=== PATIENT | male | born 1940 | race Caucasian/White ===

== ENCOUNTER → 2017-12-20 | Day surgery (SDC) | payer MEDICARE, OTHER ==
[2017-12-18 10:30] VITALS: BMI 23.6
[~2017-12-20] MED LIST: LACTATED RINGERS 1,000 ML IV SCH; LIDOCAINE 1% 20 ML VIAL (10MG/ML) FOR IV START INTRADERMA ONE; LIDOCAINE 1% INJ 10MG/ML (20 ML MDV) ONE; PROPOFOL 10 MG/ML 20 ML VIAL IV ONE
[2017-12-20 08:32] VITALS: RESP 16; TEMP 97.8
[2017-12-20 10:23] VITALS: BP 106/62; PULSE 73
--- NOTE | 2017-12-20 10:24 | P.PCN ---
Date of Procedure: 12/20/17 Procedure(s) Performed: Procedure: Total colonoscopy. Preoperative diagnosis: Screening for neoplasia patient has history of polyps. Postoperative diagnosis: Exam within normal limits. Preparation: HalfLytely prep. Sedation: Was provided by anesthesia. Brief clinical history: The patient is a 77-year-old male with history of polyps. He had a sigmoid polyp removed piecemeal and a rectal polyp removed on his last colonoscopy in October 2014. The patient had colonoscopy with polypectomy and post-polypectomy bleed the month before at the [place], and at that time he had 2 ascending colon polyps removed and a large sigmoid polyp which was partially removed. The patient was recommended repeat exam at this time. He has no abdominal complaints, bleeding or anemia. Procedure: With the patient on his left lateral decubitus position and after informed consent and adequate sedation, the perianal area was inspected and it did not show any fissures or fistulas. There were no masses felt on digital rectal examination. The Olympus CFQ 160L videocolonoscope was then inserted in the rectum in the usual fashion and advanced to the cecum. The mucosa appeared healthy. No polyps or tumors were seen or any obvious diverticular disease or other pathology. I retroflexed the endoscope in the rectum before the endoscope was withdrawn. The patient tolerated the procedure well. Plan: The patient was reassured. Consideration can be given for repeat exam in 5 years depending on his overall health at that time. He will follow up with you as planned.
== END | disposition home or self-care (01) ==
LOC: ORWHC2ENDO 08:04
DX: Z12.11 Encounter for screening for malignant neoplasm of colon (principal); Z86.010 Personal history of colon polyps
CPT/HCPCS: J2001; J2704; G0105; 45378

== ENCOUNTER → 2022-08-25 | Outpatient (CLI) | payer OTHER ==
--- NOTE | 2022-08-25 14:59 | CT ---
EXAMINATION TYPE: CT abdomen pelvis wo con DATE OF EXAM: 08/25/2022 COMPARISON: None HISTORY: UTI, hematuria CT DLP: 628 mGycm Automated exposure control for dose reduction was used. TECHNIQUE: Helical acquisition of images was performed from the lung bases through the pelvis withou t use of IV contrast material. FINDINGS: The lung bases are clear. There is cholelithiasis but the gallbladder is not distended and there is no wall thickening or peric holecystic fluid. There is no biliary ductal dilatation. There is no organomegaly involving the liver , pancreas, spleen or adrenal glands. There is a large right renal cysts which has grown in the interval from 6.6 cm to 9.2 cm. There is a small septal calcification. The right kidney is malrotated. There is a complex 3.2 cm heterogeneous density mass the anterior left kidney. Adjacent to the mass i n the lateral aspect of the kidney there is a ill-defined area of increased density which could repre sent small acute subcapsular hemorrhage or calcification. The mass is suspicious for neoplasm.. There are also parapelvic cysts of the left kidney. Caliber the abdominal aorta is normal. The bowel loops are normal in caliber and there is no dilatation or obstruction. There is a large brittany unt of stool within the colon. There is no free intraperitoneal air or fluid. There is marked prostatic hypertrophy. The prostate is 6.7 cm in width and there are multiple prosthe tic calcifications. The osseous structures are intact. IMPRESSION: 1. Heterogeneous complex mass in the anterior left kidney measuring 3.2 cm. It is suspicious for neop lasm. There is also a suspicion for a small focal area of hemorrhage within the mass or alternatively calcification. MRI of the kidneys would be useful for further evaluation. 2. Markedly enlarging right renal cyst. 3. Cholelithiasis. 4. Marked prostatic hypertrophy with calcification.
== END | disposition home or self-care (01) ==
LOC: RADCTMAIN 12:50
PROVIDERS: ATTEND Urology
DX: K80.20 Calculus of gallbladder without cholecystitis without obstruction (principal); N28.1 Cyst of kidney, acquired; N40.0 Benign prostatic hyperplasia without lower urinary tract symptoms; N28.89 Other specified disorders of kidney and ureter
CPT/HCPCS: 74176; 82565; 84520

== ENCOUNTER → 2022-10-03 | Outpatient (CLI) | payer OTHER ==
--- NOTE | 2022-10-04 08:52 | CT ---
EXAMINATION TYPE: CT abdomen pelvis w con DATE OF EXAM: 10/03/2022 COMPARISON: 08/25/2022 HISTORY: Chronic urinary infection with hematuria. 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 CT DLP: 491.1 mGycm Automated exposure control for dose reduction was used. CONTRAST: CT scan of the abdomen pelvis is performed with IV Contrast, patient injected with 100ML mL of Isovue 300. FINDINGS- LUNG BASES- No significant abnormality is appreciated. Coronary artery calcification noted LIVER/GB- urolithiasis PANCREAS- No gross abnormality is seen. SPLEEN- No gross abnormality is seen. ADRENALS- No gross abnormality is seen. KIDNEYS/BLADDER-no hydronephrosis or nephrolithiasis. There are bilateral hypodense renal masses meet criteria for simple cyst. There is a larger lesion involving the right kidney measuring 9 cm in 12 H [place] units. There is a septation calcification. 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 BOWEL- nonspecific gas pattern with no obstruction. There is contain fecal debris throughout the col on and constipation. Small hiatal hernia LYMPH NODES- No greater than 1cm abdominal or pelvic lymph nodes are appreciated. OSSEOUS STRUCTURES- severe degenerative disc disease at multiple levels. OTHER- atherosclerotic changes of aorta but no evidence of aneurysm prostate gland is heterogeneous and enlarged correlated PSA. Measures 6.6 cm. There is mild bladder wall thickening. Tarlov cyst inci dentally noted. IMPRESSION- 1. There is posterior bladder wall thickening in the basis of cystitis. Consider direct assessment to rule out mucosal lesion 2. Marked enlargement prostate with heterogeneous density correlate with PSA. 3. postsurgical changes left kidney. The majority of the renal lesions are compatible with Bosniak cl assification 1 simple cyst. The largest lesion on the right does contain a septation calcification conley ggestive of a Bosniak classification 2 cyst. 4. Cholelithiasis 5. Correlate for constipation.
== END | disposition home or self-care (01) ==
LOC: RADCTMAIN 15:06
DX: D41.00 Neoplasm of uncertain behavior of unspecified kidney (principal); N32.89 Other specified disorders of bladder; N40.0 Benign prostatic hyperplasia without lower urinary tract symptoms; K80.20 Calculus of gallbladder without cholecystitis without obstruction; N28.89 Other specified disorders of kidney and ureter; N28.1 Cyst of kidney, acquired; N39.0 Urinary tract infection, site not specified
CPT/HCPCS: 74177; Q9967